=== PATIENT | male | born 1990 | race Two or more races ===

== ENCOUNTER 2022-09-22 15:45 | Emergency (ER) | payer SELFPAY ==
[~2022-09-22] VITALS: Ht 162.6 cm; Wt 85.8 kg
[2022-09-22 16:00] VITALS: BP 136/86
== END 2022-09-22 21:23 | disposition left against medical advice (07) ==
LOC: ER 15:45
DX: S09.92XA Unspecified injury of nose, initial encounter (principal); Z53.21 Procedure and treatment not carried out due to patient leaving prior to being seen by health care provider; W01.0XXA Fall on same level from slipping, tripping and stumbling without subsequent striking against object, initial encounter; Y93.89 Activity, other specified; Y92.89 Other specified places as the place of occurrence of the external cause; Y99.8 Other external cause status